=== PATIENT | female | born 1940 | race Caucasian/White ===

== ENCOUNTER 2018-09-18 07:48 | Day surgery (SDC) | payer OTHER | END 2018-09-18 15:40 | disposition home or self-care (01) | LOC: FASU 07:48 ==

== ENCOUNTER 2021-04-20 06:07 | Day surgery (SDC) | payer OTHER ==
[2021-04-14 11:30] VITALS: BMI 26.1
[2021-04-20] MEDS ORDERED: LIDOCAINE 1%/EPI 1:100000 (20 ML MULTI DOSE VIAL) ONE (07:09)
[2021-04-20] MEDS ORDERED: ERYTHROMYCIN 0.5% OPHTHALMIC OINTMENT 3.5 GM TUBE ONE (07:09)
[2021-04-20] MEDS ORDERED: BUPIVACAINE HCL 50 ML ONE (07:09)
[2021-04-20] MEDS ORDERED: POVIDONE-IODINE 5% OPHTHALMIC PREP 30 ML SOLUTION ONE (07:09)
[2021-04-20] MEDS ORDERED: ceFAZolin SODIUM 1 GM VIAL ONE ×2 (07:09→07:45)
[2021-04-20] MEDS ORDERED: TETRACAINE 0.5% OPHTH SOLN 2 ML BOTTLE ONE (07:09)
[2021-04-20] MEDS ORDERED: SUCCINYLCHOLINE CHLORIDE 200 MG/10 ML SYRINGE ONE (07:25)
[2021-04-20] MEDS ORDERED: PROPOFOL 20 ML ONE ×4 (07:25)
[2021-04-20] MEDS ORDERED: MIDAZOLAM HCL 2 MG/2 ML SINGLE DOSE VIAL ONE (07:25)
[2021-04-20] MEDS ORDERED: DEXAMETHASONE SOD PHOSPHATE 4 MG/1 ML VIAL ONE (07:49)
[2021-04-20] MEDS ORDERED: KETOROLAC TROMETHAMINE 30 MG/1 ML VIAL ONE (07:49)
[2021-04-20] MEDS ORDERED: ONDANSETRON 4 MG/2 ML VIAL ONE (07:49)
[2021-04-20] MEDS ORDERED: ACETAMINOPHEN 325 MG TABLET (FP) PO PRN (08:29)
[2021-04-20] MEDS ORDERED: PROMETHAZINE HCL 25 MG/1 ML VIAL IVPUSH PRN (08:29)
[2021-04-20] MEDS ORDERED: ONDANSETRON 4 MG/2 ML VIAL IVPUSH PRN (08:29)
[2021-04-20] MEDS ORDERED: oxyCODONE HCL 5 MG TABLET PO PRN (08:29)
[2021-04-20 09:28] VITALS: TEMP 97.6
[2021-04-20 10:06] VITALS: BP 155/86; PULSE 56
== END 2021-04-20 10:15 | disposition home or self-care (01) ==
LOC: FASU 06:07
PROVIDERS: ATTEND Ophthalmology
PROC: 08SQ0ZZ Reposition Right Lower Eyelid, Open Approach (ICD-10-PCS; 2021-04-20)
PROC: 08SR0ZZ Reposition Left Lower Eyelid, Open Approach (ICD-10-PCS; principal; 2021-04-20 07:53)
DX: H04.222 Epiphora due to insufficient drainage, left side (principal); H02.832 Dermatochalasis of right lower eyelid; H04.562 Stenosis of left lacrimal punctum
CPT/HCPCS: 94760